=== PATIENT | male | born 1985 | race Caucasian/White ===

== ENCOUNTER 2019-07-16 08:25 | Emergency (ER) | payer OTHER, MEDICAID ==
[~2019-07-16] VITALS: Ht 167.6 cm; Wt 82.6 kg
[2019-07-16 08:41] VITALS: Ht 167.6 cm; Wt 82.6 kg
[2019-07-16 09:56] VITALS: BP 131/68
== END 2019-07-16 09:56 | disposition home or self-care (01) ==
LOC: ED 08:25
DX: K04.7 Periapical abscess without sinus (principal)